=== PATIENT | male | born 1980 | race Caucasian/White ===

== ENCOUNTER 2016-08-31 01:59 | Inpatient (IN) | payer MEDICAID ==
--- NOTE | ~2016-08-31 | PA ---
Unit #: [id number] #: [id number] Patient: JASON SANTOYO [id number] [place] [address] [id number] I MR#: [id number] NAME: JASON SANTOYO. ROOM: P184 Age: 36 Sex: M Admission Date: 08/31/2016 : 1980 Date of Assessment: Attending Physician: Noel Fuentes M.D. Admitting Physician: Noel Fuentes M.D. Primary Care Physician: Primary Care Physician No PSYCHIATRIC ASSESSMENT DATE OF SERVICE 09/01/2016 INFORMANTS The patient, reliable; OLOP, reliable. CHIEF COMPLAINT Relapse. HISTORY OF PRESENT ILLNESS Jason is a 36-year-old man who recently discharged from this facility and continued to use opiates and including methamphetamines on a daily basis. He had passive suicidal ideation, and was readmitted for further treatment. PAST PSYCHIATRIC HISTORY This is the patient's fourth admission to our facility and has previous admission to the [facility] as well. FAMILY PSYCHIATRIC HISTORY The patient's father has an alcohol abuse and his mother has a history of pain medication abuse. SOCIAL HISTORY The patient denies a history of childhood abuse or neglect. He is a single heterosexual man and is currently unemployed with erratic housing. PAST MEDICAL HISTORY No chronic medical problems. MEDICATIONS None currently. ALLERGIES No known medication allergies. SUBSTANCE USE HISTORY As noted. MENTAL STATUS EXAMINATION Jason presented as a mildly disheveled man who appeared his stated age. He was cooperative with the examination. His speech was spontaneous and easily understood. Musculoskeletal examination was calm. His mood Unit #: [id number] #: [id number] Patient: JASON SANTOYO was irritable with a congruent affect. He was alert and fully oriented. Memory and concentration were fair. Thought processes were goal directed with no active psychosis. He had no active suicidal ideation, intent, or plan, but had passive suicidal ideation and could not contract for safety. Insight and judgment were fair. Fund of knowledge and abstraction were fair. ASSETS AND LIABILITIES The patient is familiar with local resources and is presenting voluntarily for treatment. Liabilities include difficulty maintaining sobriety, unstable housing, and unstable income. ADMITTING DIAGNOSES AXIS I: Opioid dependence with withdrawal, uncomplicated; amphetamine abuse; history of alcohol abuse. AXIS II: No diagnosis. AXIS III: None acute. AXIS IV: AXIS V: PSYCHIATRIC PLAN The patient was admitted and placed on the opioid detox protocol. He will have a physical examination and laboratory studies repeated as indicated and will participate in unit groups and activities. Treatment goals are resolution of intoxication, improvement in insight, and improvement in coping skills. DISCHARGE PLANNING Follow up with [facility]. ESTIMATED LENGTH OF STAY 5 days. Dictated by... Noel Fuentes M.D. ONOFRE/hoa TD: 10/01/2016 14:02 JOB #: [id number] PSYCHIATRIC ASSESSMENT Page 1 of 1 X Noel Fuentes MD X PSYCHIATRIC ASSESSMENT
--- NOTE | ~2016-08-31 | HP ---
Unit #: [id number] #: [id number] Patient: JASON SANTOYO [id number] [place] [address] [id number] I MR#: [id number] NAME: JASON SANTOYO. ROOM: P184 Age: 36 Sex: M Admission Date: 08/31/2016 : 1980 Attending Physician: Noel Fuentes M.D. Admitting Physician: Noel Fuentes M.D. Primary Care Physician: Primary Care Physician No HISTORY AND PHYSICAL HISTORY OF PRESENT ILLNESS Jason is a 36 year old admitted to [facility] because of his continued polysubstance abuse which includes IV heroin and methamphetamine. PAST MEDICAL HISTORY Long history of polysubstance abuse to include IV drugs. PAST SURGICAL HISTORY Fractured right shoulder with ORIF. ALLERGIES No known drug allergies. SOCIAL HISTORY Smokes one pack per day. Denies alcohol. Admits to a long history of polyillicit substance abuse to include IV heroin and IV meth. FAMILY HISTORY Medically noncontributory. REVIEW OF SYSTEMS CONSTITUTIONAL: No fever or chills. HEENT: Denies any sore throat, ear pain or runny nose. CARDIOVASCULAR: Denies chest pain, irregular heart rhythm or palpitations. CHEST: Denies shortness of breath or cough. No hemoptysis. GASTROINTESTINAL: Denies nausea, vomiting, diarrhea or chronic constipation. ENDOCRINE: Denies history of increased thirst or urination. No recent significant weight loss or gain. GENITOURINARY: Denies dysuria, frequency, or hematuria. SKIN: Denies any rashes. HEMATOLOGIC: Denies history of increased bleeding or bruising. MUSCULOSKELETAL: Denies any hot, swollen joints. No generalized muscle pain. NEUROLOGIC: Denies problems with vision or speech. No frequent, severe headaches. No numbness, tingling or weakness in any extremities. Denies loss of bladder or bowel control. CURRENT MEDICATIONS Detox protocol. PHYSICAL EXAMINATION GENERAL: Alert, well nourished. No apparent distress. Unit #: [id number] #: [id number] Patient: JASON SANTOYO VITAL SIGNS: Blood pressure 104/52, heart rate 90, respirations 16, and temperature 98.6. WEIGHT: 170. HEIGHT: 5 feet 9 inches. SKIN: Warm and dry without rash or lesion. HEENT: Normocephalic. TMs not viewed. Oral and nasal passages clear. Conjunctivae clear. PERRLA. EOMs intact. NECK: Supple without lymphadenopathy or thyromegaly. HEART: Regular rate and rhythm without murmur. LUNGS: Clear. ABDOMEN: Soft, nontender. : Not done. EXTREMITIES: No evidence of cyanosis, clubbing or edema. Moves all without focal deficit. NEUROLOGICAL: Grossly within normal limits. Cranial Nerves: II: Visual peres are intact. III, IV AND : Extraocular movements are intact. Pupils are equal, round and reactive to light. V: Facial sensation is grossly normal. VII: Facial movements and expression are normal. VIII: Auditory acuity grossly intact. IX, X: Uvula is midline. Phonation is normal. XI: Patient shrugs shoulders and turns head normally. XII: Tongue protrudes in the midline. Sensory and Motor Function: Sensory and motor sensation is grossly normal. Motor: moves all extremities well. Coordination: Gait is normal. Deep Tendon Reflexes: Intact. IMPRESSION Psychiatric admission. RECOMMENDATIONS PSYCHIATRIC: Per psychiatrist. MEDICAL: I see no contraindication to participate in this facility's activities. MEDICAL PROGNOSIS Good. MEDICAL CONDITION Stable. Dictated by... Bre Kingsley PJimyAJimy-C. for Kali Chawla/john TD: 09/01/2016 08:05 JOB #: [id number] Unit #: [id number] #: [id number] Patient: JASON SANTOYO HISTORY AND PHYSICAL Page 1 of 1 X Bre Kingsley HISTORY AND PHYSICAL
--- NOTE | ~2016-08-31 | DS ---
Unit #: [id number] #: [id number] Patient: ALEISHA SANTOYO N [id number] [place] [address] [id number] I MR#: [id number] NAME: ALEISHA SANTOYO. ROOM: P184 Age: 36 Sex: M Admission Date: 08/31/2016 : 1980 Discharge Date: 09/04/2016 Attending Physician: Noel Fuentes M.D. Primary Care Physician: Primary Care Physician No DISCHARGE SUMMARY REASON FOR ADMISSION Aleisha is a 36-year-old man, recently discharged from this facility. After leaving the hospital, he relapsed on the use of opioids and had methamphetamines. He had passive suicidal ideation and was admitted for stabilization. HOSPITAL COURSE The patient was admitted on the opioid detox protocol. He had no significant sequela from detox and no psychosis or suicidal ideation after admission. He participated superficially in groups and activities and was able to contract for safety on the date of discharge. DISCHARGE DIAGNOSES AXIS I: Opioid dependence with withdrawal, uncomplicated; amphetamine abuse; history of alcohol abuse. AXIS II: No diagnosis. AXIS III: Polysubstance withdrawal, resolved. AXIS IV: AXIS V: DISCHARGE INSTRUCTIONS Aleisha was given several options for followup and chose to make his own arrangements. He was interested in looking for a long-term care facility, but was offered CD-IOP in the meantime. DISCHARGE MEDICATIONS None. CONDITION AT DISCHARGE Fair. PROGNOSIS Fair. DIET AND ACTIVITY Per primary care doctor. Dictated by... Noel Fuentes M.D. [facility] Unit #: [id number] #: [id number] Patient: ALEISHA SANTOYO TD: 10/23/2016 23:39 JOB #: [id number] DISCHARGE SUMMARY Page 1 of 1 X Noel Fuentes MD X DISCHARGE SUMMARY
[2016-09-01 09:57] LABS: AMPHETAMINE POS (NEG); BARBITURATES NEG (NEG); BENZODIAZEPINES POS (NEG); COCAINE NEG (NEG); MARIJUANA NEG (NEG); OPIATES POS (NEG); TRICYCLIC ANTIDEPRESSANTS NEG (NEG); U METHADONE NEG (NEG)
[2016-09-01 12:25] LABS: BASOPHIL# 0.1 X10e3 (0-0.3); BASOPHIL% 0.8 % (0-2.5); EOSINOPHIL# 0.2 X10e3 (0-0.7); EOSINOPHIL% 3.2 % (0.0-7.0); HEMATOCRIT 51.5 % (38.0-50.0); HEMOGLOBIN 16.6 gm/dL (13.0-16.0); LYMPHOCYTE# 2.4 X10e3 (1.0-3.5); LYMPHOCYTE% 31.5 % (17.0-45.0); MEAN CELL VOLUME 84.6 FL (83-96); MEAN CORPUSCULAR HEMOGLOBIN 27.2 PG (28-34); MEAN CORPUSCULAR HGB CONC 32.2 g/dL (30-36); MEAN PLATELET VOLUME 7.8 FL (6.5-11.5); MONOCYTE# 1.3 X10e3 (0-1.0); MONOCYTE% 16.6 % (3.0-12.0); NEUTROPHIL# 3.6 X10e3 (1.5-7.1); NEUTROPHIL% 47.9 % (40-75); PLATELET COUNT 403 X10e3 (140-420); RED BLOOD COUNT 6.08 X10e (3.90-5.60); RED CELL DISTRIBUTION WIDTH 14.8 % (11.0-15.5); WHITE BLOOD COUNT 7.6 X10e3 (4.0-10.5)
[2016-09-01 12:34] LABS: DIFF IND NO
[2016-09-01 12:39] LABS: ALBUMIN SERUM 4.4 g/dL (3.5-5.0); BILIRUBIN,TOTAL 0.5 mg/dL (0.2-2.0); CALCIUM SERUM 9.9 mg/dL (8.4-10.2); GLOM FILT RATE Estimated 97.8 mL/min (>60); PROTEIN TOTAL SERUM 7.2 g/dL (6.0-8.3)
[2016-09-01 12:43] LABS: POTASSIUM 5.8 mmol/L (3.5-5.1)
== END 2016-09-04 14:00 | disposition home or self-care (01) | DRG 897 ==
LOC: P1E 01:59
PROVIDERS: Psychiatry & Neurology Psychiatry
PROC: HZ2ZZZZ Detoxification Services for Substance Abuse Treatment (ICD-10-PCS; principal; 2016-08-31)
DX: F11.23 Opioid dependence with withdrawal (principal); F15.20 Other stimulant dependence, uncomplicated; F17.210 Nicotine dependence, cigarettes, uncomplicated; Z56.0 Unemployment, unspecified
CPT/HCPCS: 80053; 80307; 84132; 85025; 86592

== ENCOUNTER 2016-09-13 01:11 | Inpatient (IN) | payer MEDICAID ==
--- NOTE | ~2016-09-13 | PN ---
Unit #: [id number] #: [id number] Patient: ALEISHA SANTOYO [id number] [facility] [address] [place] [address] [id number] MR#: [id number] NAME: ALEISHA SANTOYO ROOM: P266 Age: 36 Sex: M Admission Date: 09/13/2016 : 1980 Attending Physician: Noel Fuentes M.D. Admitting Physician: Noel Fuentes M.D. Primary Care Physician: Kristan Dee M.D. [facility] PROGRESS NOTES DATE 09/15/2016 DISCUSSION The patient was seen in coverage for Dr. Fuentes today. He is requesting transfer to a chemical dependence treatment unit and it will be so ordered. He continues to endorse sadness and some suicidal ideation. He was able to promise safety inside the hospital. Dictated by... Tim Allen M.D. CB/[place] TD: 09/15/2016 13:11 JOB #: [id number] [facility] PROGRESS NOTES Page 1 of 1 X Tim Allen MD X PROGRESS NOTE
--- NOTE | ~2016-09-13 | HP ---
Unit #: [id number] #: [id number] Patient: JASON SANTOYO [id number] [place] [address] [id number] I MR#: [id number] NAME: JASON SANTOYO ROOM: P266 Age: 36 Sex: M Admission Date: 09/13/2016 : 1980 Attending Physician: Noel Fuentes M.D. Admitting Physician: Noel Fuentes M.D. Primary Care Physician: Kristan Dee M.D. HISTORY AND PHYSICAL Jason is a 36-year-old admitted to [address] [place] [address] because of his continued polysubstance abuse. He was just discharged from this facility after treatment for the same. The patient was seen and H & P dated 08/31/2016 was reviewed. This is current. No changes. Please see H & P dated 08/31/2016. Dictated by... Bre Kingsley P.A.-C. for Kali Chawla/kiersten TD: 09/13/2016 21:21 JOB #: [id number] HISTORY AND PHYSICAL Page 1 of 1 X Bre Kingsley HISTORY AND PHYSICAL
--- NOTE | ~2016-09-13 | DS ---
Unit #: [id number] #: [id number] Patient: ALEISHA SANTOYO [id number] [place] [address] [id number] I MR#: [id number] NAME: ALEISHA SANTOYO. ROOM: P171 Age: 36 Sex: M Admission Date: 09/13/2016 : 1980 Discharge Date: 09/17/2016 Attending Physician: Noel Fuentes M.D. Primary Care Physician: Kristan Dee M.D. DISCHARGE SUMMARY REASON FOR ADMISSION Mr. Santoyo is a 36-year-old man with history of several admissions to this facility, who reported he relapsed on alcohol after discharge and has developed increasing depression with vague suicidal ideation. He could not contract for safety and was readmitted for stabilization. DIAGNOSTIC STUDIES LABORATORY RESULTS: Please see hospital chart. HOSPITAL COURSE Aleisha was admitted and placed on the alcohol detox protocol. His Neurontin was also restarted for pain, but he declined initiation of an antidepressant medication. He had an uneventful period of detox with no seizures, hallucinations, delirium, or other adverse effects and on the date of discharge, he contracted for safety in good condition. DISCHARGE DIAGNOSES AXIS I: Alcohol dependence with withdrawal, uncomplicated; pain disorder. AXIS II: No diagnosis. AXIS III: Chronic pain. AXIS IV: AXIS V: DISCHARGE INSTRUCTIONS Follow up with [facility] and primary care physician. DISCHARGE MEDICATIONS Neurontin 600 mg q.i.d. for pain. CONDITION AT DISCHARGE Improved. PROGNOSIS Fair to good. DIET AND ACTIVITY Per primary care doctor. Dictated by... Noel Fuentes M.D. Unit #: [id number] #: [id number] Patient: ALEISHA SANTOYO MR/modl TD: 09/17/2016 13:55 JOB #: [id number] DISCHARGE SUMMARY Page 1 of 1 X Noel Fuentes MD X DISCHARGE SUMMARY
--- NOTE | ~2016-09-13 | PA ---
Unit #: [id number] #: [id number] Patient: JASON SANTOYO [id number] [place] [address] [id number] I MR#: [id number] NAME: JASON SANTOYO ROOM: P171 Age: 36 Sex: M Admission Date: 09/13/2016 : 1980 Date of Assessment: Attending Physician: Noel Fuentes M.D. Admitting Physician: Noel Fuentes M.D. Primary Care Physician: Krsitan Dee M.D. PSYCHIATRIC ASSESSMENT DATE OF SERVICE 09/14/2016. INFORMANTS The patient, reliable; OLOP, reliable. CHIEF COMPLAINT Detox. HISTORY OF PRESENT ILLNESS Jason is a 36-year-old man, recently discharged from this facility, who relapsed onto the use of alcohol and has been noncompliant with followup and treatment. He had vague suicidal ideation and could not contract for safety. He was readmitted for detox and further stabilization. PAST PSYCHIATRIC HISTORY As noted, the patient has had multiple admissions to this facility. Please see details of his psychiatric history from previous assessments. FAMILY PSYCHIATRIC HISTORY Please see previous assessments. SOCIAL HISTORY The patient is erratically housed, but is involved with some 12-step programming and [employer] system. He has minimal psychosocial support otherwise. PAST MEDICAL HISTORY The patient suffers from chronic pain. MEDICATIONS Neurontin 600 mg q.i.d. for pain. ALLERGIES No known medication allergies. SUBSTANCE USE HISTORY As noted previously. MENTAL STATUS EXAMINATION Mr. Santoyo presented as a disheveled man who appeared older than his stated Unit #: [id number] #: [id number] Patient: JASON SANTOYO age. He was cooperative with the examination. His speech was spontaneous, but soft. Musculoskeletal examination was calm. His mood was moderately depressed with a congruent affect. He was alert and fully oriented. Memory and concentration were fair to good. Thought processes were goal directed with no active psychosis. He reported suicidal ideation with no specific plan and contracted for safety only in the hospital. Insight and judgment, fair. Fund of knowledge and abstraction, fair. ASSETS AND LIABILITIES The patient is voluntary and knows local resources. Liabilities include problems maintaining sobriety. ADMITTING DIAGNOSES AXIS I: Alcohol dependence with withdrawal, uncomplicated, F10.230; psychological pain disorder. AXIS II: No diagnosis. AXIS III: Chronic pain. AXIS IV: AXIS V: PSYCHIATRIC PLAN Dave was admitted and placed on suicide precautions and the alcohol detox protocol. Neurontin for pain was restarted. He will enroll in dual diagnosis groups and activities, and physical examination and laboratory studies will be ordered and reviewed. Treatment goals are resolution of SI, improvement in insight, and improvement in coping skills. DISCHARGE PLANNING Follow up with [facility] programing and primary care physician. ESTIMATED LENGTH OF STAY 5 days. Dictated by... Noel Fuentes M.D. ONOFRE/hoa TD: 09/17/2016 17:53 JOB #: [id number] PSYCHIATRIC ASSESSMENT Page 1 of 1 X Noel Fuentes MD X PSYCHIATRIC ASSESSMENT
--- NOTE | ~2016-09-13 | PN ---
Unit #: [id number] #: [id number] Patient: ALEISHA SANTOYO [id number] [facility] [address] [place] [address] [id number] I MR#: [id number] NAME: ALEISHA SANTOYO ROOM: P171 Age: 36 Sex: M Admission Date: 09/13/2016 : 1980 Attending Physician: Noel Fuentes M.D. Admitting Physician: Noel Fuentes M.D. Primary Care Physician: Kali Cantu PROGRESS NOTES DATE 09/16/2016 DISCUSSION Dave continues to have mild to moderate detox symptoms, although he is up and around on the unit today. He states he is planning to go to a [facility] after leaving the hospital. He is alert and fully oriented with no psychosis. ASSESSMENT Alcohol dependence. PLAN Anticipate discharge soon. Dictated by... Noel Fuentes M.D. [facility]/ts TD: 09/20/2016 08:02 JOB #: [id number] [facility]ALL[facility] PROGRESS NOTES Page 1 of 1 X Noel Fuentes MD PROGRESS NOTE
--- NOTE | ~2016-09-13 | PN ---
Unit #: [id number] #: [id number] Patient: JASON SANTOYO N [id number] [facility] [address] [place] [address] [id number] MR#: [id number] NAME: JASON SANTOYO ROOM: P171 Age: 36 Sex: M Admission Date: 09/13/2016 : 1980 Attending Physician: Noel Fuentes M.D. Admitting Physician: Noel Fuentes M.D. Primary Care Physician: Kali Cantu PROGRESS NOTES DATE OF SERVICE: 04/17/2017 DISCUSSION Jason has active detox symptoms today. His mood remains dysphoric and irritable with a downcast affect. He is alert and fully oriented with no active psychosis and vague suicidal ideation. ASSESSMENT Alcohol dependence. PLAN Continue current treatment plan. Dictated by... Kali DominguezH/hoa TD: 09/17/2016 13:57 JOB #: [id number] [facility] PROGRESS NOTES Page 1 of 1 X Noel Fuentes MD X PROGRESS NOTE
[2016-09-13 09:50] LABS: BASOPHIL% 0.6 % (0-2.5); EOSINOPHIL# 0.5 X10e3 (0-0.7); EOSINOPHIL% 5.3 % (0.0-7.0); HEMOGLOBIN 15.2 gm/dL (13.0-16.0); LYMPHOCYTE# 3.5 X10e3 (1.0-3.5); LYMPHOCYTE% 40.1 % (17.0-45.0); MEAN CELL VOLUME 83.7 FL (83-96); MEAN CORPUSCULAR HEMOGLOBIN 27.6 PG (28-34); MEAN PLATELET VOLUME 7.9 FL (6.5-11.5); MONOCYTE% 11.3 % (3.0-12.0); NEUTROPHIL# 3.7 X10e3 (1.5-7.1); NEUTROPHIL% 42.7 % (40-75); PLATELET COUNT 371 X10e3 (140-420); RED CELL DISTRIBUTION WIDTH 14.7 % (11.0-15.5); WHITE BLOOD COUNT 8.6 X10e3 (4.0-10.5)
[2016-09-13 09:53] LABS: ALBUMIN SERUM 4.1 g/dL (3.5-5.0); BILIRUBIN,TOTAL 0.9 mg/dL (0.2-2.0); BUN/CREATININE RATIO 16.66; CALCIUM SERUM 9.3 mg/dL (8.4-10.2); CREATININE SERUM 0.9 mg/dL (0.6-1.4); POTASSIUM 4.2 mmol/L (3.5-5.1); PROTEIN TOTAL SERUM 6.5 g/dL (6.0-8.3)
[2016-09-13 10:05] LABS: DIFF IND NO
[2016-09-13 13:40] LABS: AMPHETAMINE POS (NEG); BARBITURATES NEG (NEG); BENZODIAZEPINES NEG (NEG); COCAINE NEG (NEG); MARIJUANA NEG (NEG); OPIATES POS (NEG); TRICYCLIC ANTIDEPRESSANTS POS (NEG); U METHADONE NEG (NEG)
== END 2016-09-17 12:35 | disposition home or self-care (01) | DRG 897 ==
LOC: P2L 01:11 → P1E 09-15 16:33
PROVIDERS: Psychiatry & Neurology Psychiatry
PROC: HZ2ZZZZ Detoxification Services for Substance Abuse Treatment (ICD-10-PCS; principal; 2016-09-13)
DX: F10.230 Alcohol dependence with withdrawal, uncomplicated (principal); R45.851 Suicidal ideations; F45.41 Pain disorder exclusively related to psychological factors
CPT/HCPCS: 80053; 80307; 85025; 86592

== ENCOUNTER 2016-09-26 22:06 | Inpatient (IN) | payer MEDICAID ==
--- NOTE | ~2016-09-26 | HP ---
Unit #: [id number] #: [id number] Patient: JASON SANTOYO [id number] [place] [address] [id number] MR#: [id number] NAME: JASON SANTOYO ROOM: P178 Age: 36 Sex: M Admission Date: 09/26/2016 : 1980 Attending Physician: Noel Fuentes M.D. Admitting Physician: Noel Fuentes M.D. Primary Care Physician: Kristan Dee M.D. HISTORY AND PHYSICAL Jason is a 36 year old admitted to [facility] because of his continued polysubstance abuse. He has had numerous admissions to this facility for the same. Patient was seen and H and P dated 08/31/16 was reviewed. This is current. No changes. Please see H and P dated 08/31/16. Dictated by... Bre Kingsley P.A.-C. for Kali Chawla/marylin TD: 09/27/2016 19:07 JOB #: [id number] HISTORY AND PHYSICAL Page 1 of 1 X Bre Kingsley HISTORY AND PHYSICAL
--- NOTE | ~2016-09-26 | PA ---
Unit #: [id number] #: [id number] Patient: JASON SANTOYO N [id number] [place] [address] [id number] MR#: [id number] NAME: JASON SANTOYO. ROOM: P178 Age: 36 Sex: M Admission Date: 09/26/2016 : 1980 Date of Assessment: Attending Physician: Noel Fuentes M.D. Admitting Physician: Noel Fuentes M.D. Primary Care Physician: Kristan Dee M.D. PSYCHIATRIC ASSESSMENT DATE OF SERVICE 09/27/2016. INFORMANTS The patient, partially reliable and OLOP, reliable. CHIEF COMPLAINT "I'm severely depressed." HISTORY OF PRESENT ILLNESS Mr. Santoyo is a 36-year-old man with multiple admissions to this facility. He reports he is increased because of my "brother's situation," although he would not be specific. He has also been drinking alcohol and using opioids to excess. He was unable to contract for safety and was admitted for protection and detox. PAST PSYCHIATRIC HISTORY Last admission in this facility in 09/13/2016, where he was admitted after being noncompliant. He has had multiple previous admissions to this facility as well. FAMILY PSYCHIATRIC HISTORY The patient has a brother with substance abuse problems. SOCIAL HISTORY The patient has been [facility], but has minimal psychosocial support otherwise and is not employed. PAST MEDICAL HISTORY Chronic pain. MEDICATIONS Neurontin 600 mg q.i.d. ALLERGIES No known medication allergies. SUBSTANCE USE HISTORY As noted above. MENTAL STATUS EXAMINATION Jason presented as a disheveled man, who appeared his stated age. He stood 5 feet 9 inches tall and weighed 170 pounds. Vital signs; Unit #: [id number] #: [id number] Patient: JASON SANTOYO temperature 98.2, pulse 73, respirations 18, and blood pressure 103/62. Speech was soft and sparse, but easily understood. Musculoskeletal examination was calm. His mood was depressed with a congruent affect. He was alert and fully oriented. His memory and concentration were fair. His thought processes were goal directed with no active psychosis. He reported ongoing suicidal ideation with multiple plans and could not contract for safety. Insight and judgment, fair. Fund of knowledge and abstraction, fair. ASSETS AND LIABILITIES The patient is familiar with local resources and presents voluntarily for treatment. Liabilities include recent relapse and lack of stable housing and income. ADMITTING DIAGNOSES AXIS I: Alcohol dependence with withdrawal, uncomplicated; substance induced mood disorder; and depressed. AXIS II: No diagnosis. AXIS III: Chronic pain. AXIS IV: AXIS V: PSYCHIATRIC PLAN The patient was admitted and placed on suicide precautions and the alcohol detox protocol. Neurontin was restarted. He will enroll in dual diagnosis groups and activities. TREATMENT GOALS Resolution of SI, improvement in insight, and improvement in coping skills. DISCHARGE PLANNING Follow up with [facility]. ESTIMATED LENGTH OF STAY 5 days. Dictated by... Noel Fuentes M.D. ONOFRE/hoa TD: 09/27/2016 11:52 JOB #: [id number] PSYCHIATRIC ASSESSMENT Page 1 of 1 X Noel Fuentes MD X PSYCHIATRIC ASSESSMENT
[2016-09-28 09:51] LABS: AMPHETAMINE NEG (NEG); BARBITURATES NEG (NEG); BENZODIAZEPINES POS (NEG); COCAINE NEG (NEG); MARIJUANA NEG (NEG); OPIATES NEG (NEG); TRICYCLIC ANTIDEPRESSANTS NEG (NEG); U METHADONE NEG (NEG)
== END 2016-10-01 11:05 | disposition home or self-care (01) | DRG 897 ==
LOC: P1E 22:06
PROVIDERS: Psychiatry & Neurology Psychiatry
PROC: HZ2ZZZZ Detoxification Services for Substance Abuse Treatment (ICD-10-PCS; principal; 2016-09-26)
DX: F10.230 Alcohol dependence with withdrawal, uncomplicated (principal); R45.851 Suicidal ideations; F10.24 Alcohol dependence with alcohol-induced mood disorder; F32.9 Major depressive disorder, single episode, unspecified; G89.29 Other chronic pain; Z59.1 Inadequate housing
CPT/HCPCS: 80307; 86592

== ENCOUNTER 2016-10-14 18:12 | Emergency (ER) | payer MEDICAID ==
[2016-10-14 19:18] LABS: BASOPHIL# 0.1 X10e3 (0-0.3); BASOPHIL% 0.7 % (0-2.5); EOSINOPHIL# 0.1 X10e3 (0-0.7); EOSINOPHIL% 1.6 % (0.0-7.0); HEMATOCRIT 48.4 % (38.0-50.0); HEMOGLOBIN 15.9 gm/dL (13.0-16.0); LYMPHOCYTE# 1.8 X10e3 (1.0-3.5); LYMPHOCYTE% 19.6 % (17.0-45.0); MEAN CELL VOLUME 83.8 FL (83-96); MEAN CORPUSCULAR HEMOGLOBIN 27.6 PG (28-34); MEAN CORPUSCULAR HGB CONC 32.9 g/dL (30-36); MEAN PLATELET VOLUME 7.7 FL (6.5-11.5); MONOCYTE# 1.1 X10e3 (0-1.0); MONOCYTE% 12.4 % (3.0-12.0); NEUTROPHIL# 6.1 X10e3 (1.5-7.1); NEUTROPHIL% 65.7 % (40-75); PLATELET COUNT 401 X10e3 (140-420); RED BLOOD COUNT 5.77 X10e (3.90-5.60); RED CELL DISTRIBUTION WIDTH 13.9 % (11.0-15.5); WHITE BLOOD COUNT 9.2 X10e3 (4.0-10.5)
[2016-10-14 19:27] LABS: DIFF IND NO
[2016-10-14 19:49] LABS: ALBUMIN SERUM 4.7 g/dL (3.5-5.0); ALKALINE PHOSPHATASE 77 U/L (32-92); ALT (SGPT) 106 U/L (10-40); AST (SGOT) 124 U/L (10-42); BILIRUBIN, DIRECT 0.2 mg/dL (0.0-0.2); BILIRUBIN,INDIRECT 0.8 mg/dL (0.0-0.9); BLOOD UREA NITROGEN 16 mg/dL (9-23); BUN/CREATININE RATIO 17.77; CALCIUM SERUM 9.1 mg/dL (8.4-10.2); CARBON DIOXIDE 29 mmol/L (22-31); CHLORIDE 96 mmol/L (100-111); CREATININE SERUM 0.9 mg/dL (0.6-1.4); GLUCOSE FASTING 88 mg/dL (70-110); POTASSIUM 3.8 mmol/L (3.5-5.1); SALICYLATE <4.0 mg/dL; SODIUM 135 mmol/L (135-145)
[2016-10-14 19:54] LABS: ACETAMINOPHEN <10 ug/mL; ALCOHOL BLOOD <5 mg/dL (0)
== END 2016-10-15 02:00 | disposition short-term general hospital (02) ==
LOC: CED 18:12
PROVIDERS: Emergency Medicine
DX: R45.851 Suicidal ideations (principal); F17.200 Nicotine dependence, unspecified, uncomplicated; F32.9 Major depressive disorder, single episode, unspecified
CPT/HCPCS: 36415; 80048; 80076; 85025; 99285; G0480

== ENCOUNTER 2016-10-14 20:37 | Inpatient (IN) | payer MEDICAID ==
--- NOTE | ~2016-10-14 | PA ---
Unit #: [id number] #: [id number] Patient: JASON SANTOYO [id number] [place] [address] [id number] MR#: [id number] NAME: JASON SANTOYO. ROOM: P179 Age: 36 Sex: M Admission Date: 10/15/2016 : 1980 Date of Assessment: Attending Physician: Noel Fuentes M.D. Admitting Physician: Noel Fuentes M.D. Primary Care Physician: Kristan Dee M.D. PSYCHIATRIC ASSESSMENT DATE OF SERVICE 10/16/2016. INFORMANTS The patient, reliable; OLOP, reliable. CHIEF COMPLAINT Intoxication. HISTORY OF PRESENT ILLNESS Mr. Santoyo is a 36-year-old male with multiple admissions to this facility using alcohol and opioids to excess. He had no specific suicidal plan, but was unable to contract for safety, admitted for stabilization. PAST PSYCHIATRIC HISTORY Last admission to this facility was in 09/2016. He is typically noncompliant with treatment recommendations outside of the hospital. FAMILY PSYCHIATRIC HISTORY The patient has a brother with substance abuse problems. SOCIAL HISTORY The patient has been erratically housed with minimal employment and minimal psychosocial support. PAST MEDICAL HISTORY History of chronic pain. MEDICATIONS Neurontin 600 mg q.i.d. for pain. ALLERGIES No known medication allergies. SUBSTANCE USE HISTORY As noted in previous assessments. MENTAL STATUS EXAMINATION Jason presented as a disheveled man, appearing his stated age. He was difficult to arouse, but generally cooperative with the examination. His speech was soft, sparse, but easily understood. His musculoskeletal examination was calm. His mood was irritable with no change in affect. He was alert and fully oriented. His memory and concentration were fair. Unit #: [id number] #: [id number] Patient: JASON SANTOYO His thought processes were goal directed with no active psychosis. He was equivocal about suicidal ideation, but would not contract for safety outside of the hospital. Insight and judgment were fair. Fund of knowledge and abstraction were fair. ASSETS AND LIABILITIES The patient is familiar with local resources and presents voluntarily for treatment. Liabilities include difficulty maintaining sobriety, unstable housing, and employment. ADMITTING DIAGNOSES AXIS I: Alcohol dependence with withdrawal, uncomplicated, F10.230; depression by history. AXIS II: No diagnosis. AXIS III: Chronic pain. AXIS IV: AXIS V: PSYCHIATRIC PLAN Jason was admitted and placed on the alcohol detox protocol. Seroquel was provided for insomnia, and his Neurontin was restarted from his outpatient doctor. He will enroll in dual diagnosis groups and activities. TREATMENT GOALS Resolution of intoxication, improvement in insight, and improvement in coping skills. DISCHARGE PLANNING Follow up with jail house or rehab facility of choice. ESTIMATED LENGTH OF STAY 5 days. Dictated by... Noel Fuentes M.D. ONOFRE/hoa TD: 10/19/2016 03:55 JOB #: [id number] PSYCHIATRIC ASSESSMENT Page 1 of 1 X Noel Fuentes MD X PSYCHIATRIC ASSESSMENT
--- NOTE | ~2016-10-14 | HP ---
Unit #: [id number] #: [id number] Patient: ALEISHA SANTOYO [id number] [place] [address] [id number] MR#: [id number] NAME: ALEISHA SANTOYO. ROOM: P179 Age: 36 Sex: M Admission Date: 10/15/2016 : 1980 Attending Physician: Noel Fuentes M.D. Admitting Physician: Noel Fuentes M.D. Primary Care Physician: Kristan Dee M.D. HISTORY AND PHYSICAL HISTORY OF PRESENT ILLNESS The patient is a 36-year-old male who states he is admitted to heroin, crystal meth and alcohol. PAST MEDICAL HISTORY None. PAST SURGICAL HISTORY None. ALLERGIES None. SOCIAL HISTORY Positive for smoking, alcohol and drugs. FAMILY HISTORY Noncontributory. REVIEW OF SYSTEMS CONSTITUTIONAL: No fever or chills. HEENT: Denies any sore throat, ear pain or runny nose. CARDIOVASCULAR: Denies chest pain, irregular heart rhythm or palpitations. CHEST: Denies shortness of breath or cough. No hemoptysis. GASTROINTESTINAL: Denies nausea, vomiting, diarrhea or chronic constipation. ENDOCRINE: Denies history of increased thirst or urination. No recent significant weight loss or gain. GENITOURINARY: Denies dysuria, frequency, or hematuria. SKIN: Denies any rashes. HEMATOLOGIC: Denies history of increased bleeding or bruising. MUSCULOSKELETAL: Denies any hot, swollen joints. No generalized muscle pain. NEUROLOGIC: Denies problems with vision or speech. No frequent, severe headaches. No numbness, tingling or weakness in any extremities. Denies loss of bladder or bowel control. CURRENT MEDICATIONS 1. Gabapentin 600 mg p.o. 4 times daily. 2. Seroquel 100 mg p.o. q.h.s. PHYSICAL EXAMINATION GENERAL: Lethargic lying in bed, answers questions reluctantly. Unit #: [id number] #: [id number] Patient: ALEISHA SANTOYO VITAL SIGNS: Temperature 97.1, heart rate 84, respirations 18, blood pressure 114/77. HEIGHT: 5 feet 9 inches. WEIGHT: 160 pounds. SKIN: Scratch to the left AC. Tattoo to the right lower extremity. Abrasion to the left knee. Bruise to the right lower extremity. Red area to the right AC. Tattoo to the left shoulder. HEENT: Normocephalic. TMs not viewed. Oral and nasal passages clear. Conjunctivae clear. PERRLA. EOMs intact. NECK: Supple without lymphadenopathy or thyromegaly. HEART: Regular rate and rhythm without murmur. LUNGS: Clear. ABDOMEN: Soft, nontender, without masses or hepatosplenomegaly. : Not done. EXTREMITIES: No evidence of cyanosis, clubbing or edema. Moves all without focal deficit. NEUROLOGICAL: Grossly within normal limits. Cranial Nerves: II: Visual peres are intact. III, IV AND : Extraocular movements are intact. Pupils are equal, round and reactive to light. V: Facial sensation is grossly normal. VII: Facial movements and expression are normal. VIII: Auditory acuity grossly intact. IX, X: Uvula is midline. Phonation is normal. XI: Patient shrugs shoulders and turns head normally. XII: Tongue protrudes in the midline. Sensory and Motor Function: Sensory and motor sensation is grossly normal. Motor: moves all extremities well. Coordination: Gait is normal. Deep Tendon Reflexes: Intact. IMPRESSION Psychiatric admission. RECOMMENDATIONS PSYCHIATRIC: Per psychiatrist. MEDICAL: No contraindications to participate in facility's activities. MEDICAL PROGNOSIS Good. Dictated by... Isabel Jauregui/marylin TD: 10/15/2016 18:28 JOB #: [id number] Unit #: [id number] #: [id number] Patient: ALEISHA SANTOYO HISTORY AND PHYSICAL Page 1 of 1 X Omaira Smith APR X HISTORY AND PHYSICAL
--- NOTE | ~2016-10-14 | DS ---
Unit #: [id number] #: [id number] Patient: JASON SANTOYO [id number] [place] [address] [id number] I MR#: [id number] NAME: JASON SANTOYO ROOM: P179 Age: 36 Sex: M Admission Date: 10/15/2016 : 1980 Discharge Date: 10/18/2016 Attending Physician: Noel Fuentes M.D. Primary Care Physician: Kristan Dee M.D. DISCHARGE SUMMARY REASON FOR ADMISSION Jason is a 36-year-old man with a long history of polysubstance dependence. He came in reporting the heavy use of alcohol, occasional use of opiates, and vague suicidal ideation with no specific plan. He was admitted for stabilization. DIAGNOSTIC STUDIES LABORATORY RESULTS: Please see hospital chart. HOSPITAL COURSE The patient was admitted and placed on suicide precautions and the alcohol detox protocol. Neurontin was restarted for pain control and opioid detox, and Seroquel was provided for sleep. He had an uneventful period of inpatient detox with no hallucinations, delusions, or disorientation, and on the date of discharge, he was able to contract for safety with no further suicidal ideation, intent, or plan. He stated that he was looking for long-term rehab. DISCHARGE DIAGNOSES AXIS I: Alcohol dependence with withdrawal, uncomplicated. Opioid dependence. Depressive disorder, not otherwise specified. AXIS II: No diagnosis. AXIS III: Chronic pain. AXIS IV: AXIS V: PSYCHIATRIC PLAN The patient was discharged to a chemical dependency programing of his choice with the assistance of our unit social work instructor. DISCHARGE MEDICATIONS No prescriptions were provided due to the recency of his discharge. He was to continue on gabapentin 600 mg q.i.d. for pain and Seroquel 100 mg at bedtime from his primary care physician. CONDITION AT DISCHARGE Improved. PROGNOSIS Fair to good. DIET AND ACTIVITY Unit #: [id number] #: [id number] Patient: JASON SANTOYO Ad moises. Dictated by... Noel Fuentes M.D. [facility]/modl TD: 10/19/2016 03:52 JOB #: [id number] DISCHARGE SUMMARY Page 1 of 1 X Noel Fuentes MD DISCHARGE SUMMARY
[2016-10-17 10:14] LABS: URINE APPEARANCE CLEAR; URINE BILIRUBIN NEG (NEG); URINE BLOOD NEG (NEG); URINE COLOR DK YELLOW; URINE GLUCOSE NEG (NEG); URINE KETONE NEG (NEG); URINE LEUKOCYTE ESTERASE NEG (NEG); URINE NITRATE NEG (NEG); URINE PH 6.5 (5-8); URINE PROTEIN NEG (NEG); URINE SPECIFIC GRAVITY 1.007 (1.003-1.035); URINE UROBILINOGEN 0.2 MG/DL (NEG)
[2016-10-17 11:30] LABS: AMPHETAMINE NEG (NEG); BARBITURATES NEG (NEG); BENZODIAZEPINES POS (NEG); COCAINE NEG (NEG); MARIJUANA NEG (NEG); OPIATES NEG (NEG); TRICYCLIC ANTIDEPRESSANTS POS (NEG); U METHADONE NEG (NEG)
== END 2016-10-18 12:20 | disposition home or self-care (01) | DRG 897 ==
LOC: P1E 10-15 01:56
PROVIDERS: Psychiatry & Neurology Psychiatry
PROC: HZ2ZZZZ Detoxification Services for Substance Abuse Treatment (ICD-10-PCS; principal; 2016-10-15)
DX: F10.230 Alcohol dependence with withdrawal, uncomplicated (principal); F11.20 Opioid dependence, uncomplicated; G89.29 Other chronic pain; F32.9 Major depressive disorder, single episode, unspecified; Y90.0 Blood alcohol level of less than 20 mg/100 ml
CPT/HCPCS: 80307; 81003

== ENCOUNTER 2016-10-30 | Inpatient (IN) | payer MEDICAID ==
--- NOTE | ~2016-10-30 | DS ---
Unit #: [id number] #: [id number] Patient: JASON SANTOYO [id number] [place] [address] [id number] I MR#: [id number] NAME: JASON SANTOYO. ROOM: P184 Age: 36 Sex: M Admission Date: 10/30/2016 : 1980 Discharge Date: 11/03/2016 Attending Physician: Noel Fuentes M.D. Primary Care Physician: Kristan Dee M.D. DISCHARGE SUMMARY REASON FOR ADMISSION Jason is a 36-year-old man who came to the hospital reporting another recent relapse after he was discharged from our facility about 2 weeks ago. He had vague suicidal ideation and was unable to contract for safety. He was readmitted for stabilization. DIAGNOSTIC STUDIES LABORATORY RESULTS: Please see hospital chart. HOSPITAL COURSE Jason was admitted and returned to treatment on the detox protocol. Home medications were continued unchanged except for the Neurontin which was included on the detox protocol. He enrolled in psychotherapy groups and activities, and did not participate for the first 48 hours, although later on, he was able to participate more fully. On the date of discharge, he contracted for safety and had achieved placement [facility] [facility]. DISCHARGE DIAGNOSES AXIS I: Opioid dependence withdrawal, uncomplicated; alcohol abuse; history of depression. AXIS II: No diagnosis. AXIS III: Chronic pain. AXIS IV: AXIS V: DISCHARGE INSTRUCTIONS Follow up with [facility] and primary care physician. DISCHARGE MEDICATIONS None were provided. The patient was continued on Seroquel 100 mg at bedtime for insomnia and Neurontin 600 mg q.i.d. for pain from his primary care physician. CONDITION AT DISCHARGE Improved. PROGNOSIS Good. DIET AND ACTIVITY Ad moises. Unit #: [id number] #: [id number] Patient: JASON SANTOYO Dictated by... Noel Fuentes M.D. [facility]/hoa TD: 11/04/2016 12:37 JOB #: [id number] DISCHARGE SUMMARY Page 1 of 1 X Noel Fuentes MD X DISCHARGE SUMMARY
--- NOTE | ~2016-10-30 | HP ---
Unit #: [id number] #: [id number] Patient: ALEISHA SANTOYO [id number] [place] [address] [id number] I MR#: [id number] NAME: ALEISHA SANTOYO ROOM: P184 Age: 36 Sex: M Admission Date: 10/30/2016 : 1980 Attending Physician: Noel Fuentes M.D. Admitting Physician: Noel Fuentes M.D. Primary Care Physician: Kristan Dee M.D. HISTORY AND PHYSICAL HISTORY OF PRESENT ILLNESS The patient is a 36-year-old male, admitted to [facility] on 10/30/2016, for drug abuse. The patient had a recent admission on 10/15/2016, where a full history and physical was completed. That history and physical has been reviewed and no changes need to be made. Dictated by... Isabel Boateng/lisette TD: 11/01/2016 05:05 JOB #: [id number] HISTORY AND PHYSICAL Page 1 of 1 X ABDULKADIR MERRITT APRN HISTORY AND PHYSICAL
--- NOTE | ~2016-10-30 | PN ---
Unit #: [id number] #: [id number] Patient: ALEISHA SANTOYO [id number] [facility] [address] [place] [address] [id number] I MR#: [id number] NAME: ALEISHA SANTOYO ROOM: P184 Age: 36 Sex: M Admission Date: 10/30/2016 : 1980 Attending Physician: Noel Fuentes M.D. Admitting Physician: Noel Fuentes M.D. Primary Care Physician: Kali Cantu PROGRESS NOTES DATE 11/02/2016 DISCUSSION Dave continues to have osxn-pe-hefzeauh detox symptoms today. His mood is a little better with a brighter affect. He is alert and fully oriented with no active psychosis. He is vague about suicidal ideation today. Detox symptoms appear to be improving. ASSESSMENT 1. Opioid dependence. 2. Polysubstance withdrawal. PLAN Continue current treatment plan. Dictated by... Kali DominguezH/bzalessandra TD: 11/05/2016 07:52 JOB #: [id number] KALLIE PROGRESS NOTES Page 1 of 1 X Noel Fuentes MD PROGRESS NOTE
--- NOTE | ~2016-10-30 | PA ---
Unit #: [id number] #: [id number] Patient: JASON SANTOYO [id number] [place] [address] [id number] I MR#: [id number] NAME: JASON SANTOYO ROOM: P184 Age: 36 Sex: M Admission Date: 10/30/2016 : 1980 Date of Assessment: Attending Physician: Noel Fuentes M.D. Admitting Physician: Noel Fuentes M.D. Primary Care Physician: Kirstan Dee M.D. PSYCHIATRIC ASSESSMENT DATE OF SERVICE 10/31/2016. INFORMANTS The patient reliable and OLOP, reliable. CHIEF COMPLAINT SI and he will be detoxed. HISTORY OF PRESENT ILLNESS Jason is a 36-year-old male with multiple admissions to this facility, who came in reporting a recent relapse on vodka, amphetamine, and heroin. He had vague suicidal ideation and was readmitted for an episode of detox and further stabilization. PAST PSYCHIATRIC HISTORY Multiple admissions to this facility, the last on 10/15/2016. FAMILY PSYCHIATRIC HISTORY The patient has a brother with substance abuse problems. SOCIAL HISTORY Please see previous assessments. PAST MEDICAL HISTORY History of chronic pain. MEDICATIONS Neurontin 600 mg q.i.d. for pain. ALLERGIES No known medication allergies. SUBSTANCE ABUSE HISTORY As noted above and in previous assessments. MENTAL STATUS EXAMINATION Jason presented as a disheveled man, who appeared older than his stated age. He was cooperative with the examination. Speech was soft, but easily understood. Musculoskeletal examination was calm. His mood was irritable with a congruent affect. He was alert and fully oriented. Memory and concentration were fair. Thought processes were goal directed with no psychosis. He had suicidal ideation, but no specific plan or Unit #: [id number] #: [id number] Patient: JASON SANTOYO intent. Insight and judgment, fair. Fund of knowledge and abstraction, fair. ASSETS AND LIABILITIES The patient knows local resources and apparently has a [facility] available. Liabilities include recent relapse. ADMITTING DIAGNOSES AXIS I: Opioid dependence with withdrawal, uncomplicated; alcohol abuse; and major depression. AXIS II: No diagnosis. AXIS III: History of chronic pain. AXIS IV: AXIS V: PSYCHIATRIC PLAN The patient was admitted and placed on the alcohol detox protocol. Seroquel was provided for insomnia and he will enroll in dual diagnosis groups and activities. A physical examination will be repeated as indicated. TREATMENT GOALS Establishment of sobriety, resolution of SI, improvement in insight, and improvement in coping skills. DISCHARGE PLANNING Follow up with [facility] and [facility]. ESTIMATED LENGTH OF STAY 5 days. Dictated by... Noel Fuentes M.D. ONOFRE/hoa TD: 11/04/2016 14:41 JOB #: [id number] PSYCHIATRIC ASSESSMENT Page 1 of 1 X Noel Fuentes MD X PSYCHIATRIC ASSESSMENT
--- NOTE | ~2016-10-30 | PN ---
Unit #: [id number] #: [id number] Patient: ALEISHA SANTOYO [id number] [facility] [address] [place] [address] [id number] I MR#: [id number] NAME: ALEISHA SANTOYO ROOM: P184 Age: 36 Sex: M Admission Date: 10/30/2016 : 1980 Attending Physician: Noel Fuentes M.D. Admitting Physician: Noel Fuentes M.D. Primary Care Physician: Kali Cantu PROGRESS NOTES DATE 11/01/2016 DISCUSSION Dave continues to have active detox symptoms today. His mood remains dysphoric and irritable with a congruent affect. He is alert and fully oriented with no psychosis. He does continue to assert some suicidal ideation today but has no specific plan. ASSESSMENT 1. Opiate dependence. 2. Alcohol withdrawal. PLAN Continue current treatment plan and work toward discharge later in the week. Dictated by... Kali DominguezH/bzalessandra TD: 11/05/2016 07:46 JOB #: [id number] KALLIE PROGRESS NOTES Page 1 of 1 X Noel Fuentes MD PROGRESS NOTE
== END 2016-11-03 12:16 | DRG 897 ==
LOC: P1E 13:15
PROC: HZ2ZZZZ Detoxification Services for Substance Abuse Treatment (ICD-10-PCS; principal; 2016-10-30)
DX: F11.23 Opioid dependence with withdrawal (principal); R45.851 Suicidal ideations; F10.10 Alcohol abuse, uncomplicated; F32.9 Major depressive disorder, single episode, unspecified; G89.29 Other chronic pain

== ENCOUNTER 2016-10-30 03:23 | Emergency (ER) | payer MEDICAID ==
[2016-10-30 05:39] LABS: BASOPHIL# 0.1 X10e3 (0-0.3); BASOPHIL% 0.6 % (0-2.5); EOSINOPHIL# 0.3 X10e3 (0-0.7); EOSINOPHIL% 3.2 % (0.0-7.0); HEMATOCRIT 40.3 % (38.0-50.0); HEMOGLOBIN 13.2 gm/dL (13.0-16.0); LYMPHOCYTE# 2.9 X10e3 (1.0-3.5); LYMPHOCYTE% 29.4 % (17.0-45.0); MEAN CELL VOLUME 84.2 FL (83-96); MEAN CORPUSCULAR HEMOGLOBIN 27.6 PG (28-34); MEAN CORPUSCULAR HGB CONC 32.8 g/dL (30-36); MEAN PLATELET VOLUME 7.4 FL (6.5-11.5); MONOCYTE# 0.9 X10e3 (0-1.0); MONOCYTE% 9.4 % (3.0-12.0); NEUTROPHIL# 5.7 X10e3 (1.5-7.1); NEUTROPHIL% 57.4 % (40-75); PLATELET COUNT 389 X10e3 (140-420); RED BLOOD COUNT 4.79 X10e (3.90-5.60)
[2016-10-30 05:45] LABS: DIFF IND NO
[2016-10-30 06:34] LABS: BLOOD UREA NITROGEN 9 mg/dL (9-23); CALCIUM SERUM 8.6 mg/dL (8.4-10.2); CARBON DIOXIDE 25 mmol/L (22-31); CHLORIDE 102 mmol/L (100-111); CREATININE SERUM 0.9 mg/dL (0.6-1.4); GLUCOSE FASTING 147 mg/dL (70-110); POTASSIUM 3.1 mmol/L (3.5-5.1); SODIUM 135 mmol/L (135-145)
[2016-10-30 06:37] LABS: ALCOHOL BLOOD <5 mg/dL (0)
== END 2016-10-30 12:33 ==
LOC: CED 03:23
PROVIDERS: Emergency Medicine
DX: R45.851 Suicidal ideations (principal); F11.14 Opioid abuse with opioid-induced mood disorder; F15.14 Other stimulant abuse with stimulant-induced mood disorder; F17.210 Nicotine dependence, cigarettes, uncomplicated
CPT/HCPCS: 36415; 80048; 85025; 99285; G0480